=== PATIENT | male | born 1975 | race African-American/Black ===

== ENCOUNTER 2020-05-18 03:43 | Emergency (ER) | payer OTHER, MEDICAID ==
[~2020-05-18] VITALS: Ht 172.7 cm; Wt 106.6 kg
[2020-05-18 03:50] VITALS: BP 158/87
--- NOTE | 2020-05-18 04:00 | NUR ---
SEEN AND EXAMINED BY LISA WITH ORDERS, AND CARRIED OUT.
[2020-05-18] MEDS ORDERED: MECLIZINE 25 MG TAB PO ONE (04:10)
[2020-05-18 05:00] VITALS: BP 158/87
== END 2020-05-18 05:00 | disposition home or self-care (01) ==
LOC: MED 03:43
DX: R42 Dizziness and giddiness (principal); J45.909 Unspecified asthma, uncomplicated
CPT/HCPCS: 99282; J8597

== ENCOUNTER 2023-05-09 16:18 | Emergency (ER) | payer MEDICARE, OTHER ==
[~2023-05-09] VITALS: Ht 162.6 cm; Wt 99.8 kg
[2023-05-09 17:17] VITALS: BP 147/80; PULSE 120; RESP 20; TEMP 102.6; O2SAT 98
[2023-05-09] MEDS ORDERED: ACETAMINOPHEN 325 MG TAB PO ONE (17:25)
[2023-05-09] MEDS ORDERED: IBUPROFEN 600 MG TAB PO ONE (18:40)
[2023-05-09 19:32] LABS: FLU A ANTIGEN negative (NEGATIVE); FLU B ANTIGEN NEGATIVE (NEGATIVE)
[2023-05-09] MEDS ORDERED: IBUP-2213 PO (19:42)
[2023-05-09] MEDS ORDERED: BENZ-300 PO (19:42)
[2023-05-09] MEDS ORDERED: ACET-10509 PO (19:42)
[2023-05-09 19:46] VITALS: BP 135/80; PULSE 101; RESP 20; TEMP 100.1; O2SAT 99
== END 2023-05-09 19:46 | disposition home or self-care (01) ==
LOC: MED 16:18
DX: J06.9 Acute upper respiratory infection, unspecified (principal); Z20.822 Contact with and (suspected) exposure to COVID-19; Z79.899 Other long term (current) drug therapy
CPT/HCPCS: 71045; 99284